=== PATIENT | male | born 2005 | race Asian ===

== ENCOUNTER 2024-01-18 14:42 | Emergency (ER) | payer OTHER ==
[~2024-01-18] VITALS: Ht 182.9 cm; Wt 65.0 kg
[2024-01-18 15:15] VITALS: TEMP 98.3
[2024-01-18 19:33] VITALS: BP 117/78; PULSE 64
== END 2024-01-18 19:33 | disposition home or self-care (01) ==
LOC: COL.ER 14:42
DX: K92.1 Melena (principal)